=== PATIENT | male | born 1955 | race Asian ===

== ENCOUNTER 2017-03-08 13:46 | Outpatient (CLI) | payer OTHER ==
[~2017-03-08] VITALS: Ht 170.2 cm; Wt 79.5 kg
[2017-03-08 14:06] VITALS: BP 167/87; PULSE 73; RESP 18; Ht 170.2 cm; Wt 79.5 kg
[2017-03-08] MEDS ORDERED: ASPI-664 PO (14:12)
[2017-03-08] MEDS ORDERED: SITA100T8 PO (14:12)
[2017-03-08] MEDS ORDERED: LOSA1TAB21 PO (14:12)
[2017-03-08] MEDS ORDERED: MONT10TA24 PO (14:12)
[2017-03-08] MEDS ORDERED: OMEP40CA6 PO (14:12)
[2017-03-08] MEDS ORDERED: DULO60CA59 PO (14:12)
[2017-03-08] MEDS ORDERED: PRAV20TA63 PO (14:12)
[2017-03-08] MEDS ORDERED: MELO-109 PO (14:12)
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
== END 2017-03-08 16:30 | disposition home or self-care (01) ==
LOC: HPC 13:46
PROVIDERS: ATTEND Transplant Surgery
DX: D18.03 Hemangioma of intra-abdominal structures (principal); I12.9 Hypertensive chronic kidney disease with stage 1 through stage 4 chronic kidney disease, or unspecified chronic kidney disease; E11.22 Type 2 diabetes mellitus with diabetic chronic kidney disease; N18.9 Chronic kidney disease, unspecified; E78.5 Hyperlipidemia, unspecified; K20.9 Esophagitis, unspecified; M60.9 Myositis, unspecified; M62.81 Muscle weakness (generalized); R31.29 Other microscopic hematuria; M79.1 Myalgia; K30 Functional dyspepsia; G89.4 Chronic pain syndrome; M25.561 Pain in right knee; F32.9 Major depressive disorder, single episode, unspecified; K76.0 Fatty (change of) liver, not elsewhere classified
CPT/HCPCS: G0463

== ENCOUNTER 2017-06-28 14:34 | Outpatient (CLI) | payer OTHER ==
[~2017-06-28] VITALS: Ht 170.2 cm; Wt 80.5 kg
[~2017-06-28 14:34] MED LIST: ASPI-664 PO; DULO60CA59 PO; LOSA1TAB21 PO; MELO-109 PO; MONT10TA24 PO; OMEP40CA6 PO; PRAV20TA63 PO; SITA100T8 PO
[2017-06-28 14:38] VITALS: BP 125/76; PULSE 91; RESP 18; Ht 170.2 cm; Wt 80.5 kg
[2017-06-28] MEDS ORDERED: AMLO-218 PO (14:53)
[2017-06-28] MEDS ORDERED: AZEL137S9 NASAL (14:53)
[2017-06-28] MEDS ORDERED: METO100T13 PO (14:53)
[2017-06-28] MEDS ORDERED: FLUT9.9S NASAL (14:53)
--- NOTE | 2017-06-28 14:57 | PN ---
Date/Time of Note Date/Time of Note DATE: 06/28/17 TIME: 14:57 Assessment/Plan Assessment/Plan Assessment/Plan [facility] Outpatient Progress Note Date of Service: 06/28/2017 Today's Assessment & Plan: Overall stable and doing well. His repeat liver dedicated axial images that had to be done due to poor quality of the previous CT scan were done on 2016 with an MRI. The findings fortunately indicate benign hemangioma. No indication for acute surgical intervention. I also do not see any further reason to image the patient for this entity unless the patient becomes symptomatic or other reasons exists. Explain all of this to the patient and answered all questions. Patient appeared to understand and agreed with plans. With above assessment, I've recommended the following for today: 1. Follow-up with primary care physician 2. Follow-up with us as needed Thank you again for your great care of this very pleasant gentleman and I am certain his wonderful family. If there are any questions, please feel free to call me at [phone]. Disclaimer: Inadvertent spelling and grammatical errors are likely due to EHR/ dictation software use and do not reflect on the quality of delivered patient care. Also, please note that the electronic time recorded on this node does not necessarily reflect the actual time of the visit. Updated Clinical Summary: A very pleasant 61-year-old gentleman with a few comorbidities including high blood pressure as well as diabetes and known hemangioma in segment 7 of his liver since 2012, who was found to have increased size on the latest ultrasound in October 2016 of his liver and was referred for evaluation. His repeat liver dedicated axial images that had to be done due to poor quality of the previous CT scan were done on 06/09/2017 with an MRI. The findings fortunately indicate benign hemangioma. COMORBIDITIES: 1. Hypertension. 2. Diabetes mellitus. 3. Dyslipidemia. 4. Gastroesophageal inflammation requiring omeprazole. 5. Chronic kidney disease. 6. Myositis. 7. Muscle weakness. 8. Microscopic hematuria. 9. Myalgia and myositis. 10. Indigestion. 11. Chronic pain syndrome with right knee pain. 12. Depression. 13. History of sleep apnea. 14. History of palpitations. 15. History of dizziness and giddiness. 16. History of headaches. 17. Benign hemangioma segment 6 of liver, confirmed on MRI 06/09/2017 Subjective: No major events or complaints since the last visit; no abd pain and under control with medications; no n/v/d; no sob or cp; + flatus; + BM and normal; + activity Objective: Vitals: See below Exam: GENERAL: On exam, the patient was sitting up in a chair and appeared to be comfortable and in no acute distress. ABDOMEN: Soft, nontender and nondistended. There are no peritoneal signs or guarding. SKIN: Skin appears to be pink and feels warm to touch. NEUROLOGIC: Patient is awake, alert, and follows commands appropriately. Exam/Review of Systems Vital Signs Vitals Vital Signs Date Time Temp Pulse Resp B/P Pulse Ox O2 Delivery O2 Flow Rate FiO2 06/28/17 14:38 98.5 91 18 125/76 90 Room Air TJ ENCINAS M.D. Jun 28, 2017 14:57
== END 2017-06-28 17:00 | disposition home or self-care (01) ==
LOC: HPC 14:34
PROVIDERS: ATTEND Transplant Surgery
DX: I12.9 Hypertensive chronic kidney disease with stage 1 through stage 4 chronic kidney disease, or unspecified chronic kidney disease (principal); E78.5 Hyperlipidemia, unspecified; E11.9 Type 2 diabetes mellitus without complications; K21.9 Gastro-esophageal reflux disease without esophagitis; N18.9 Chronic kidney disease, unspecified; M79.7 Fibromyalgia
CPT/HCPCS: G0463